=== PATIENT | male | born 1965 | race Hispanic/Latino ===

== ENCOUNTER → 2018-02-24 | Outpatient (CLI) | payer OTHER ==
[~2018-02-24] MED LIST: AMBIEN10 MG PO; CRESTOR10 MG PO; FENOFIBRATE145 MG PO; HYZAAR 100-251 EACH PO; JANUVIA100 MG PO; METOPROLOL TART50 MG PO
--- NOTE | 2018-02-24 15:57 | Diagnostic Imaging Report ---
Frontal and lateral views of the chest. HISTORY: Chronic cough COMPARISON: None available. DISCUSSION: Lungs: Low lung volumes result in bibasilar vascular crowding, accentuation of the pulmonary interstitial markings, central pulmonary vasculature, and the cardiac silhouette. Allowing for these limitations, the findings are as follows: No evidence of a consolidative pneumonia or pulmonary alveolar edema. A 3 mm calcific density projects near the left lung apex, likely a small calcified granuloma. Pleura: No pleural effusion or pneumothorax. Heart and mediastinum: The cardiomediastinal silhouette appears unremarkable. Bones: No acute osseous lesion. IMPRESSION: 1. No acute radiographic abnormality. 2. Probable 3 mm left lung calcified granuloma. No comparison available for confirmation. Signed by: Dr. Nathaniel Duckworth D.O., M.M.M. on 02/24/2018 3:52 PM
== END ==
LOC: RAD 15:08
PROVIDERS: ATTEND Internal Medicine
DX: R05 Cough (principal); J41.0 Simple chronic bronchitis
CPT/HCPCS: 71046